=== PATIENT | female | born 1940 | race Hispanic/Latino ===

== ENCOUNTER 2016-11-07 00:34 | Emergency (ER) | payer SELFPAY ==
[~2016-11-07 00:34] MED LIST: AGM875T PO; ASPI-973 PO; AZU500 PO; DIPH25CA6 PO; ETAN25DI SQ; FAMO20T PO; GABA-500 PO; HYDR200T5 PO; INSU100C8 SUBQ; INSU100V4 SUBQ; LOVA20TA PO; METF1000 PO; PRD2.5T PO; PRE20 PO; TRAM50TA2 PO
[2016-11-07 00:38] VITALS: BP 174/85; PULSE 80; RESP 20; O2SAT 100
--- NOTE | 2016-11-07 00:42 | ED.REPORT ---
HPI-Extremity Problem Lower Date of Service Nov 07, 2016 ED Provider: Dr. Llanes Pt is a 76 y/o Micronesian speaking female w/ a hx of RA on prednisone, IDDM, presenting to the ED c/o bilateral hand and feet cramping onset today, worse since 19:00. She also c/o left lateral abdominal pain which began after arrival to the ED. Her hands were contorted inwards earlier causing her difficult using them, but this is now resolved. At no point was she hyperventilating. She denies any recent illnesses, numbness of her face or extremities, fever, chills , cough, nausea, vomiting, diarrhea, SOB, lower extremity swelling/pain/ redness. She has had no recent medication changes and has been taking her meds as scheduled. She has been crying but denies any emotional events. Nursing Notes Stated Complaint: LEG PAIN Chief Complaint: General Complaint Nursing Notes Reviewed: Yes Allergies: Coded Allergies: No Known Allergies (Verified , 12/20/15) Scheduled Amoxicillin/Clav K 875-125 mg (Amoxicillin/Clav K 875-125 mg) 875 Mg Tab 1 TAB PO BID Aspirin (Aspirin) 81 Mg Tablet 81 MG PO DAILY Etanercept (Enbrel) 25 Mg/0.5 Ml Syringe 25 MG SQ WEEKLY Famotidine (Pepcid) 20 Mg Tablet 20 MG PO BID Gabapentin (Gabapentin) 100 Mg Capsule 100-300 MG PO HS Hydroxychloroquine Sulfate (Hydroxychloroquine Sulfate) 200 Mg Tablet 400 MG PO DAILY Insulin Aspart (NovoLOG U100 Insulin Vial) 100 U/Ml U 5 UNIT SUBQ TIDWM use as directed Insulin Detemir (Levemir U100 Insulin Vial) 100 Unit/1 Ml Vial 20 UNIT SUBQ DAILY Lovastatin (Lovastatin) 20 Mg Tablet 20 MG PO HS Metformin (Glucophage) 1,000 Mg Tablet 1,000 MG PO BID Prednisone (PredniSONE) 20 Mg Tablet 40 MG PO DAILY Prednisone (PredniSONE) 2.5 Mg Tab 2.5-5 MG PO DAILY Sulfasalazine (Sulfasalazine) 500 Mg Tablet 1,000 MG PO BID Scheduled PRN Tramadol (Tramadol) 50 Mg Tablet 50-100 MG PO DAILY PRN PRN For Pain diphenhydrAMINE HCl (Benadryl) 25 Mg Capsule 25 MG PO Q4 PRN PRN For Itching General Time Seen by MD: 00:42 Chief Complaint Other (hand and feet cramping) Hx Obtained From: Patient, Director Of Financial Reporting Arrived By: Walk-in Onset Occurred: 5 - 8 hours ago Symptom Duration: Since onset Location: : Foot left: Foot right Quality: Cramping Severity: Current: Mild Severity: Maximum: Moderate Past Medical History Past Medical History ho rheumatoid arthritis Diabetes, type II, insulin requiring GERD History of chronic headaches Immunosuppression with prednisone Past Surgical History None reported Smoking History Never Smoker Social History Alcohol Use: Denies alcohol use Drug Use: Denies drug use Ambulatory Status Independent Review of Systems Constitutional: Denies: Chills, Fever Musculoskeletal: Reports: Extremity pain, Denies: Extremity swelling Skin: Denies Rash, Denies Swelling Complete sys rev & neg: except as marked. Respiratory: Denies: Shortness of breath GI: Reports: Abdominal pain Physical Exam Initial Vital Signs Vital Signs (First) Date Time Temp Pulse Resp B/P Pulse Ox O2 Delivery O2 Flow Rate FiO2 11/07/16 00:38 80 20 174/85 100 Room Air 11/07/16 02:52 36.9 Initial VS: Reviewed, Vital signs abnormal Head / Eyes: Atraumatic, Normocephalic ENT: Mucous membranes moist, Conjunctiva normal, No scleral icterus Neck: Supple, Full range of motion Respiratory: Breath sounds normal, Clear to auscultation, No respiratory distress Cardiovascular: Regular rate & rhythm, Heart sounds normal, Intact distal pulses Skin: Warm, Dry, No cyanosis Neurologic: Alert, Oriented, Nonfocal Psychiatric: Mood/affect normal, Behavior normal, Normal thought content Lower Extremity / Pelvis / MS: Atraumatic, No swelling, Non-tender, No erythema , No deformity, Neurologic intact, Vascular intact Calves soft and non-tender No redness or swelling to joints Ankle / Foot: Atraumatic, Full range of motion, Non-tender, No deformity, Neurologic intact, Vascular intact General/Constitutional: Awake, Alert, No acute distress, Well appearing, Cooperative, Not toxic appearing Abdomen: Atraumatic, Soft, No guarding, No rebound, No distention, No palpable mass Mild periumbilical and diffuse left-sided tenderness Upper Extremity / MS: Atraumatic, Full range of motion, No swelling, Non-tender , No erythema, No deformity, Neurologic intact, Vascular intact No redness or swelling to joints Interpretation & Diagnostics Lab Results Interpretation Result Diagram: 11/07/16 0125 11/07/16 0125 Test 11/07/16 01:25 White Blood Count 8.1th/mm3 (3.8-10.1) Red Blood Count 3.72mil/mm3 (3.90-5.20) Hemoglobin 11.3g/dL (12.0-15.6) Hematocrit 34.5% (35.0-46.0) Mean Corpuscular Volume 92.7fL (81-100) Mean Corpuscular Hemoglobin 30.4pg (27.0-35.0) Mean Corpuscular Hemoglobin Concent 32.8% (32.0-37.0) Red Cell Distribution Width 12.6% (12.3-15.4) Platelet Count 272bil/L (150-400) Neutrophils (%) (Auto) 58.2% (40-74) Lymphocytes (%) (Auto) 29.8% (14-46) Monocytes (%) (Auto) 10.2% (4-12) Eosinophils (%) (Auto) 1.2% (0-5) Basophils (%) (Auto) 0.4% (0-3) Erythrocyte Sedimentation Rate 21mm/hr (0-40) Hold Urine Received (Received) Sodium Level 139mEq/L (134-144) Potassium Level 4.0mEq/L (3.5-5.2) Chloride Level 99mEq/L (97-108) Carbon Dioxide Level 27mmol/L (18-29) Blood Urea Nitrogen 34mg/dL (8-27) Creatinine 1.11mg/dL (0.57-1.00) Estimat Glomerular Filtration Rate 68mL/min (>59) Glucose Level 72mg/dL (60-99) Calcium Level 9.8mg/dL (8.5-10.1) Magnesium Level 2.4mg/dL (1.6-2.6) C-Reactive Protein 0.1mg/dL (0.0-0.5) ECG Interpretation Time: 01:32 Interpreted by: ED physician Normal ECG Interpretation: Normal ECG w/ rate of... (68), Normal rate, Normal sinus rhythm, No acute ischemic changes, Normal QRS, Normal axis, Normal intervals, Adequate tracing X-Ray Chest Interpretation View: Portable, 1 view Interpretation / Wet Read by: Wet read ED physician NL X-Ray Chest Findings: No infiltrate, No acute disease Re-Eval/Medical Decision Med Decision/Clinical Course The patient presents with increased pain, typical for arthritis pain. What was not typical was the difficulty using her hands and feet, her description sounds consistent with hyperventilation. There are no signs of inflammation in her blood or infection. She was found to be slightly dehydrated. A partial list of differential diagnosis considered were infection, electrolyte abnormality, and rheumatoid arthritis flare. The patient also developed some left-sided chest discomfort in area of her axilla while here it moved to her left shoulder given its migratory makes cardiac etiology unlikely, her EKG was also normal. considerations were pneumonia, musculoskeletal pain, and pulmonary embolus. The patient wishes she is symptomatically was feeling improved upon discharge. She is given a one-time dose of increase prednisone but was not continued on this given no signs of inflammation were seen in her blood. Re-Evaluation/Progress : Time of Eval: 02:16 Patient Status: Condition improved, Moderate relief, Pain improved Re-Evaluation/Progress Note: Pt rechecked. Informed pt of plan for discharge. Pt understands and agrees with plan for discharge. F/U instructions and RTER warnings given. All questions addressed. Counseled Regarding: Diagnosis, Lab results, Need for follow-up, When/why to return to ED Discharge & Departure Impression: Primary Impression: Joint pain Joint pain location: unspecified Qualified Code: M25.50 - Pain in unspecified joint Additional Impressions: Rheumatoid arthritis Rheumatoid arthritis location: unspecified site Rheumatoid factor presence: unspecified presence Qualified Code: M06.9 - Rheumatoid arthritis, unspecified Dehydration Disposition: Home Discharge Condition All VS Reviewed: Yes Condition: Stable Patient Instructions: Rheumatoid Arthritis (ED) Additional Instructions: The cause of your joint pain is unclear but may be caused by your rheumatoid arthritis. Labs today were reassuring and showed signs of mild dehydration. There was no sign of infection. Return to the emergency department if you experience fever, worsening pain, or for other concerning symptoms. Follow-up with your primary care doctor next week if you continue to experience cramps. Referrals: Yanet Conner MD (PCP) Scribe Attestation Portions of this note were transcribed by Mando Chairez. I, Dr. Llanes, personally performed the history, physical exam and medical decision-making; I reviewed and confirmed the accuracy of the information in the transcribed note. copies to: Yanet Conner MD, Jena M MD Nov 07, 2016 00:42 MANDO CHAIREZ Nov 07, 2016 00:49
[2016-11-07] MEDS ORDERED: predniSONE 20 mg Tablet PO ONE (00:55)
[2016-11-07 01:36] LABS: BASOPHILS % (AUTO) 0.4 % (0-3); EOSINOPHILS % (AUTO) 1.2 % (0-5); MONOCYTES % (AUTO) 10.2 % (4-12); Mean Corpuscular Hemoglobin 30.4 pg (27.0-35.0); Mean Corpuscular Volume 92.7 fL (81-100); NEUTROPHILS % (AUTO) 58.2 % (40-74); Platelet Count 272 bil/L (150-400)
[2016-11-07 01:54] LABS: ERYTHROCYTE SEDIMENTATION RATE 21 mm/hr (0-40)
[2016-11-07 02:07] LABS: Magnesium 2.4 mg/dL (1.6-2.6)
[2016-11-07] MEDS ORDERED: 0.9% Sodium Chloride 1,000 ML IV ONE (02:10)
[2016-11-07 02:52] VITALS: BP 165/81; PULSE 83; RESP 18; O2SAT 100
--- NOTE | 2016-11-07 08:35 | DRSVH ---
PROCEDURE: X-RAY CHEST ONE VIEW, PORTABLE ([id number]) INDICATIONS: 76 year-old female with left chest pain. TECHNIQUE: One view of the chest was acquired. COMPARISON: [facility], CR, XR CHEST 1VW (PORTABLE), 12/26/2015, 9:46. [facility], CR, XR CHEST 1VW (PORTABLE), 08/28/2015, 18:39. [facility], CR, CHEST 2VW, 2013, 11:00. FINDINGS: Surgical changes and devices: None. Lungs and pleura: No pleural effusions or pneumothorax. Lungs are clear. Mediastinum: Mediastinal contours appear normal. Heart size is normal. Bones and chest wall: No suspicious bony lesions. Overlying soft tissues appear unremarkable. IMPRESSION: No acute cardiopulmonary disease. Dictated by: Javier Garibay M.D. on 11/07/2016 at 8:33 Approved by: Javier Garibay M.D. on 11/07/2016 at 8:34
== END 2016-11-07 03:01 | disposition home or self-care (01) ==
LOC: SED 00:34
DX: M25.541 Pain in joints of right hand (principal); M25.542 Pain in joints of left hand; M79.671 Pain in right foot; M79.672 Pain in left foot; M06.89 Other specified rheumatoid arthritis, multiple sites; E86.0 Dehydration; R10.33 Periumbilical pain; R10.84 Generalized abdominal pain; E11.9 Type 2 diabetes mellitus without complications; K21.9 Gastro-esophageal reflux disease without esophagitis; D89.9 Disorder involving the immune mechanism, unspecified; Z79.4 Long term (current) use of insulin; Z79.82 Long term (current) use of aspirin; Z79.84 Long term (current) use of oral hypoglycemic drugs; Z79.52 Long term (current) use of systemic steroids
CPT/HCPCS: 36415; 71010; 80048; 83735; 85025; 85651; 86140; 93005; 96361; 96374; 99285; J2270; J7030